=== PATIENT | male | born 1995 | race Caucasian/White ===

== ENCOUNTER 2016-12-03 05:41 | Emergency (ER) | payer OTHER, MEDICAID ==
[~2016-12-03] VITALS: Ht 177.8 cm; Wt 83.9 kg
--- NOTE | 2016-12-03 05:41 | NUR ---
Patient being evaluated by physician
--- NOTE | 2016-12-03 05:41 | NUR ---
BIB [facility] TO ER OF1
[2016-12-03 05:42] VITALS: BP 147/80
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
--- NOTE | 2016-12-03 05:55 | NUR ---
PATIENT BIB [facility] POLICE DEPT. PATIENT EXAMINED BY DR. FERRARO. PATIENT MEDICALLY CLEARED AND RELEASED IN CUSTODY IN STABLE CONDITION. ORIGINAL PRE-BOOK FORM GIVEN TO OFFICER ALYCE.
[2016-12-03 05:56] VITALS: BP 147/80
== END 2016-12-03 05:55 ==
LOC: MED 05:41
DX: Z02.89 Encounter for other administrative examinations (principal)